=== PATIENT | male | born 1955 | race Caucasian/White ===

== ENCOUNTER 2018-04-01 06:00 | Day surgery (SDC) | payer BC ==
[2018-04-01] MEDS ORDERED: MIDAZOLAM 1 MG/ML 2 ML INJ (07:29)
[2018-04-01] MEDS ORDERED: PROPOFOL 20 ML (07:29)
[2018-04-01] MEDS ORDERED: FENTAnyl 50 MCG/ML VIAL (07:29)
== END 2018-04-01 11:06 | disposition home or self-care (01) ==
LOC: GIL 06:00
DX: Z12.11 Encounter for screening for malignant neoplasm of colon (principal); K64.8 Other hemorrhoids; E11.9 Type 2 diabetes mellitus without complications; I10 Essential (primary) hypertension; E66.01 Morbid (severe) obesity due to excess calories; Z68.32 Body mass index [BMI] 32.0-32.9, adult
CPT/HCPCS: 45378; 82962

== ENCOUNTER → 2018-06-23 | Outpatient (CLI) | payer BC | END | disposition home or self-care (01) | LOC: EKG 11:01 | DX: R07.9 Chest pain, unspecified (principal) | CPT/HCPCS: 93005 ==